=== PATIENT | male | born 1965 | race Caucasian/White ===

== ENCOUNTER 2022-06-17 17:49 | Emergency (ER) | payer SELFPAY ==
--- NOTE | ~2022-06-17 | US_ITS ---
EXAMINATION: US scrotum doppler DATE: 06/17/2022 19:25 INDICATION: testicular pain . TECHNIQUE: Grayscale and Doppler ultrasound images of the testes were obtained. COMPARISON: None. FINDINGS: The right testis measures 5.2 x 2.5 x 2.5 cm. The left testis measures 4.1 x 1.7 x 1.7 cm. No testicular mass. There is normal vascular flow to both testes. The right epididymis is normal with normal vascular flow. The left epididymis is normal with normal vascular flow. Large right hydrocele . No varicoceles. IMPRESSION: No sonographic evidence of testicular torsion. Large right hydrocele. Reviewed, dictated and finalized at location K.
[2022-06-17 18:19] VITALS: BP 202/108; PULSE 81; RESP 18; TEMP 36.6; O2SAT 100
--- NOTE | 2022-06-17 19:39 | ED.GENADULT ---
HPI - General Adult General Chief complaint: Urogenital-Male Stated complaint: testicular pain Time Seen by Provider: 06/17/22 18:58 History of Present Illness HPI narrative: this is a 56-year-old male presenting ED with a chief complaint of testicle pain. Patient said that starting 6 days ago he started to have swelling in the right aspect of his testicle. He thought that it was a hernia. He did not pay much attention to it until today 4:00 p.m. when it started to hurt. He describes as an achy pain that radiates to his stomach, 8 out 10 intensity and comes and goes. Patient notes that he does significant amount of heavy lifting for work. Today 4:00 p.m. he did notice some discoloration of his testicle but that has since resolved. The patient denies nausea, vomiting diarrhea. He has had a bowel movement since this began. He has had no difficulty urinating or getting an erection. Related Data Allergies Allergy/AdvReac Type Severity Reaction Status Date / Time Penicillins Allergy Mild Hives Verified 06/17/22 18:23 MEPERIDINE HCL Allergy Mild Hives Uncoded 06/17/22 18:23 Review of Systems Review of Systems: CONSTITUTIONAL: Denies night sweats. EYES: No eye pain ENT: Denies rhinorrhea CARDIOVASCULAR: Denies palpitations RESPIRATORY: Denies hemoptysis GASTROINTESTINAL: Denies hematemesis GENITOURINARY: Denies hematuria. SKIN: Denies rash MUSCULOSKELETAL: Denies myalgia. NEUROLOGIC: Denies weakness. PSYCHIATRIC: Denies delusions [facility] Surgical History Surgical History (Updated 06/17/22 @ 19:40 by Miguel A Piña MD) Previous back surgery Exam Narrative: APPEARANCE: No apparent distress. Head atraumatic. EYES: PERRLA/EOMI, NOSE: Normal no drainage NECK: Supple, Trachea midline RESPIRATORY: CTAB, No increased work of breathing. CARDIOVASCULAR: S1S2 appreciated ABDOMINAL: Soft, nontender, nondistended, Genital exam: patient has swelling of the right testicle with no overlying skin skin discoloration. The scrotum is tight to touch. No tenderness. I am unable to reduce the size of it. MUSCULOSKELETAl: No obvious deformities NEURO: Alert. Moving 4/4 extremities SKIN:: Warm, dry. Normal color PSYCHIATRIC: Normal affect Course Vital Signs Vital signs: Vital Signs Temperature 97.8 F 06/17/22 18:19 Pulse Rate 81 06/17/22 18:19 Respiratory Rate 18 06/17/22 18:19 Blood Pressure 202/108 H 06/17/22 18:19 Pulse Oximetry 100 06/17/22 18:19 Oxygen Delivery Room Air 06/17/22 18:19 Temperature 97.8 F 06/17/22 18:19 Pulse Rate 81 06/17/22 18:19 Respiratory Rate 18 06/17/22 18:19 Blood Pressure 202/108 H 06/17/22 18:19 Pulse Oximetry 100 06/17/22 18:19 Oxygen Delivery Room Air 06/17/22 18:19 Medical Decision Making MDM Narrative Medical decision making narrative: This is a 56-year-old male presenting to ED with swelling of his right testicle. An ultrasound which performed which showed a large hydrocele. Patient was given pain medication and is now resting comfortably. Patient will be discharged to follow-up with urology for further management of his hydrocele. He has been instructed to take Motrin Tylenol for pain control. Differential Diagnosis Differential Diagnosis: Testicular torsion, inguinal hernia, hydrocele, spermatocele Vital Signs Vital Signs: Vital Signs Temperature 97.8 F 06/17/22 18:19 Pulse Rate 81 06/17/22 18:19 Respiratory Rate 18 06/17/22 18:19 Blood Pressure 202/108 H 06/17/22 18:19 Pulse Oximetry 100 06/17/22 18:19 Oxygen Delivery Room Air 06/17/22 18:19 Temperature 97.8 F 06/17/22 18:19 Pulse Rate 81 06/17/22 18:19 Respiratory Rate 18 06/17/22 18:19 Blood Pressure 202/108 H 06/17/22 18:19 Pulse Oximetry 100 06/17/22 18:19 Oxygen Delivery Room Air 06/17/22 18:19 Lab Data Result diagrams: 06/17/22 19:51 06/17/22 19:51 Labs: Lab Results 06/17/22 06/17/22
[2022-06-17] MEDS: SODIUM CHLORIDE 0.9% IV 1,000 ML 999 ML IV CONT (19:55)
[2022-06-17] MEDS: KETOROLAC 15 MG/ML VIAL (*BKC) IV PUSH (19:56)
[2022-06-17 19:58] LABS: Basophils Percent Auto 0.3 % (0.2-1.2); Eosinophils Absolute Auto 0.2 K/mm3 (0-0.3); Hematocrit 45.3 % (42.0-52.0); Hemoglobin 15.5 g/dL (14.0-18.0); Immature Granulocyte Absolute 0.02 K/mm3 (0.00-0.031); Immature Granulocyte Percent A 0.3 % (0-0.5); Lymphocytes Absolute Auto 1.91 K/mm3 (0.9-3.2); Lymphocytes Percent Auto 26.1 % (18.3-44.2); Mean Corpuscular HGB Conc 34.2 g/dl (32-36); Mean Corpuscular Hemoglobin 28.5 pg (26-34); Mean Corpuscular Volume 83.4 fl (80-100); Mean Platelet Volume 8.6 fl (7.4-10.4); Monocytes Absolute Auto 0.6 K/mm3 (0.1-0.6); Monocytes Percent Auto 8.5 % (2.6-8.5); Neutrophils Absolute Auto 4.5 K/mm3 (1.3-6.7); Neutrophils Percent Auto 61.8 % (45.5-73.1); Platelet Count Result 313 k/mm3 (150-375); Red Blood Count 5.43 M/mm3 (4.6-6.20); White Blood Count 7.3 K/mm3 (4.5-10.0)
[2022-06-17 20:01] LABS: Appearance Urine Clear (Clear); Bilirubin Urine Negative (Negative); Blood Urine Negative (Negative); Color Urine Yellow (Yellow); Glucose Urine UA Negative (Negative); Ketones Urine Negative (Negative); Leukocyte Esterase Ur Negative LEU/UL (Negative); Nitrate Urine Negative (Negative); Protein Urine Negative (Negative); Urobilinogen Urine 0.2 mg/dL (<2.0); pH Urine 6.5 (5.0-9.0)
[2022-06-17 20:15] LABS: Add Urine Microscopic? NO
[2022-06-17 20:20] LABS: Prothrombin Time 12.4 Seconds (11.1-14.7)
[2022-06-17 20:21] LABS: Partial Thromboplastin Time 25.5 SECONDS (22.3-36.8)
[2022-06-17 20:28] LABS: Anion Gap 9 mmol/L (8-16); Blood Urea Nitrogen 11 mg/dL (9-20); Calcium 8.9 mg/dL (8.4-10.2); Carbon Dioxide 24 mmol/L (22-30); Chloride 105 mmol/L (98-107); Estimated CRCL calculation 68 ml/min; Estimated Glomerular Filt Rate > 60; Glucose 93 mg/dL (65-110); Potassium 3.5 mmol/L (3.4-5.0); Sodium 138 mmol/L (137-145)
== END 2022-06-17 22:40 | disposition home or self-care (01) ==
PROVIDERS: Emergency Medicine; Emergency Provider Emergency Medicine
DX: N50.811 Right testicular pain (principal); N43.3 Hydrocele, unspecified
CPT/HCPCS: 36415; 76870; 80048; 81003; 85025; 85610; 85730; 93976; 96365; 96366; 96375; 99284; J0131; J1885; J7030

== ENCOUNTER 2025-04-11 00:01 | Emergency (ER) | payer MEDICARE, SELFPAY ==
--- NOTE | ~2025-04-11 | CT_ITS ---
Clinical indication:Scrotal swelling COMPARISON:Reference is made to an ultrasound examination of the scrotum dated 06/17/2022 TECHNIQUE: Multiple contiguous axial images of the pelvis were performed following the administration of intravenous contrast. FINDINGS: Large right-sided testicular hydrocele. 5 mm scrotal glenn also noted. Small left-sided testicular hydrocele Within the abdomen: The bladder is distended. The prostate gland is enlarged but contains multiple bulky calcifications. Fecal stasis within the rectum. Posterior fixation within the lower lumbar spine. IMPRESSION: Large right-sided hydrocele, as detailed above. Reviewed, dictated and finalized at location A.
--- OUTSIDE RECORDS SUMMARY | 2025-04-11 00:03 | XMS_ITS | Clinical Summary ---
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 Role Phone Unavailable Primary Care Provider Unavailabl e Social History Tobacco Use Types Packs/Day Years Used Date Smoking Tobacco: Never Assessed Sex and Gender Information Value Date Recorded Sex Assigned at Not on file Legal Sex Male 4:27 PM CDT Gender Identity Not on file Sexual Orientation Not on file Plan of Treatment Health Maintenance Due Date Last Done Comments Colorectal Cancer Screening Colonoscopy (10 Years) 1963 Annual Physical 1966 Hepatitis C 1981 DTaP, Tdap and Td Vaccines ( 1 - Tdap) 1982 Pneumococcal Vaccine: 50+ Ye ars (1 of 1 - PCV) 2013 Zoster Vaccines (1 of 2) 2013 COVID-19 Vaccine ( - 2023-2 5 season) 2024 RSV Immunization or 60+ Years (1 - 1-dose 75+ series) 2038 Meningococcal B Vaccine Aged Out No l onger eligible based on patient's age to complete this topic Meningococcal Vaccine Aged Out No danilo amada eligible based on patient's age to complete this topic RSV Immunizations Under 20 Months Aged Out No longer eligible based on patient's age to complete this topic
--- OUTSIDE RECORDS SUMMARY | 2025-04-11 00:03 | XMS_ITS | Clinical Summary ---
Author Organization [facility] Care Team Providers Care Author Agent Name Role Phone Unavailable Primary Care Provider Unavailabl e Social History Tobacco Use Types Packs/Day Years Used Date Smoking Tobacco: Never Assessed Sex and Gender Information Value Date Recorded Sex Assigned at Not on file Legal Sex Male 7:32 PM CDT Gender Identity Not on file Sexual Orientation Not on file Plan of Treatment Not on file
--- OUTSIDE RECORDS SUMMARY | 2025-04-11 00:04 | XMS_ITS | Data Portability ---
Author Organization [place] [facility], Main Office Address [address] [place] [address] Assessment Encounter Date Assessment Date Assessment LastModified by Organization Details LastModified Time 11/26/2022 11/26/2022 X-ray the elbow he can use ibuprofen Recommend to get back in touch with Psychiatry for his mental illness [facility] for scrotal swelling told him he will probably need to get the scrotal ultrasound report as well Follow-up with me in 1 month [email or web address] Not available 12/02/2022 14:29:32 12/19/2022 12/19/2022 Elbow and should er pain seemed to have resolved. Colonoscopy. Follow-up 4 months. Blood work reviewed. [email or web address] Not available 12/21/2022 21:56:00 06/03/2023 06/03/2023 I will see him i n 3-4 days Benadryl stop antibiotic he has got no cardiopulmonary or intra oral problems Tirso Ravinder syndrome Tirso Ravinder syndrome. If he develops fever chills night sweats or worsening of condition please go to emergency room [email or web address] Not available 06/03/2023 21:44:19 06/07/2023 06/07/2023 Doxycycline for 7 days been for him not to take sulfa based drugs [email or web address] Not available 06/09/2023 11:00:45 Plan of Treatment Reminders Order Date Submit Date Provider Last Modified By Organization Details Last Modified Time Details Appointments None recorded. Lab urinalysis, dipstick 2022 023 [facility], [address], [place], [address], 15:38:19 PSA, total, serum or plasma 2022 023 [facility] (Lab), [address] [place], [address], 3 17:58:26 lipid panel, serum 2022 023 [facility] (Lab), [address] [place], [address], 3 17:32:15 CMP, serum or plasma 2022 023 [facility] (Lab), [address] [place], [address], 3 17:32:21 CBC w/ auto diff [address] (Lab), [address] [place], [address], 15:59:08 Referral urologist referral - Please call pt to schedule appt. Thank you 2022 023 shira Salas MD, [address] [facility], [facility] [address], [place], [address], 3 10:23:38 Procedures colonoscopy screening (PROC) 2022 023 shira Merlos MD, [address] [facility], [address], [place], [address], 3 10:29:35 Surgeries None recorded. Imaging XR, elbow 2022 023 [facility] ([facility]), [address] [place], [address], 3 16:55:22 Medication Orders doxycycline hyclate 100 mg capsule 2022 023 [place] [address] [employer] [facility] [id number], [address] [place], [place], [id number], 16:42:54 Patient TargetsNo targets recorded. Patient InstructionsNo instructions recorded. Reason for Referral Urologist Referral for Swell ing of scrotum Please call pt to schedule appt. Thank you Referring Physician: Sherrie Kong, Internal Medicine, Encounter Date: 11/26/2022 Results Created Date Observation Date Name Description Value Unit Range Abnormal Flag Note LastModifiedBy Organization Detail LastModifiedTime 11/27/19 23 11/26/2022 CBC/C OMPLE TE BLD COUNT W/DIF F white blood cells 6.1 x10'3 /uL 4.2-10 .8 Not Available [facility] (Lab) [address] [place], [address], 11/26/2022 15:57:51 11/27/19 23 11/26/2022 CBC/C OMPLE TE BLD COUNT W/DIF F red blood cells 3.78 x10'6 /uL 4.10-5 .80 low Not Available [facility] (Lab) [address] [place], [address], 11/26/2022 15:57:51 11/27/19 23 11/26/2022 CBC/C OMPLE TE BLD COUNT W/DIF F hemoglobin 11.8 g/dL 13.2-1 7.0 low Not Available [facility] (Lab) [address] [place], [address], 11/26/2022 15:57:51 11/27/19 23 11/26/2022 CBC/C OMPLE TE BLD COUNT W/DIF F hematocrit 35.4 % 39.3-5 0.0 low Not Available [facility] (Lab) [address] [place], [address], 11/26/2022 15:57:51 11/27/19 23 11/26/2022 CBC/C OMPLE TE BLD COUNT W/DIF F mean red cell volume 93.7 fL 80.0-9 7.0 Not Available [facility] (Lab) [address] [place], [address], 11/26/2022 15:57:51 11/27/19 23 11/26/2022 CBC/C OMPLE TE BLD COUNT W/DIF F mean red cell hemoglobin 31.2 pg 27.0-3 3.0 Not Available [facility] (Lab) [address] [facility], [address], 11/26/2022 15:57:51 11/27/19 23 11/26/2022 CBC/C OMPLE TE BLD COUNT W/DIF F mean RBC HGB concentratio n 33.3 g/dL 31.0-3 6.0 Not Available [facility] (Lab) [address] [place], [address], 11/26/2022 15:57:51 11/27/19 23 11/26/2022 CBC/C OMPLE TE BLD COUNT W/DIF F red cell distribution width 12.2 % 11.8-1 5.5 Not Available [facility] (Lab) [address] [place], [address], 11/26/2022 15:57:51 11/27/19 23 11/26/2022 CBC/C OMPLE TE BLD COUNT W/DIF F platelets 344 x10'3 /uL 150-40 0 Not Available [facility] (Lab) [address] [place], [address], 11/26/2022 15:57:51 11/27/19 23 11/26/2022 CBC/C OMPLE TE BLD COUNT W/DIF F mean platelet volume 10.2 fL 9.0-12 .4 Not Available [facility] (Lab) [address] [place], [address], 11/26/2022 15:57:51 11/27/19 23 11/26/2022 CBC/C OMPLE TE BLD COUNT W/DIF F neutrophils 50.3 % 39.0-7 2.0 Not Available [facility] (Lab) [address] [place], [address], 11/26/2022 15:57:51 11/27/19 23 11/26/2022 CBC/C OMPLE TE BLD COUNT W/DIF F lymphocytes 38.7 % 16.0-4 7.0 Not Available [facility] (Lab) [address] [place], [address], 11/26/2022 15:57:51 11/27/19 23 11/26/2022 CBC/C OMPLE TE BLD COUNT W/DIF F monocytes 7.5 % 5.0-12 .0 Not Available [facility] (Lab) [address] [place], [address], 11/26/2022 15:57:51 11/27/19 23 11/26/2022 CBC/C OMPLE TE BLD COUNT W/DIF F eosinophils 2.3 % 1.0-7. 0 Not Available [facility] (Lab) [address] [place], [address], 11/26/2022 15:57:51 11/27/19 23 11/26/2022 CBC/C OMPLE TE BLD COUNT W/DIF F basophils 1.0 % 0.0-2. 0 Not Available [facility] (Lab) [address] [place], [address], 11/26/2022 15:57:51 11/27/19 23 11/26/2022 CBC/C OMPLE TE BLD COUNT W/DIF F immature granulocytes 0.2 % 0.00-0 .50 Not Available [facility] (Lab) [address] [place], [address], 11/26/2022 15:57:51 11/27/19 23 11/26/2022 CBC/C OMPLE TE BLD COUNT W/DIF F neutrophils, absolute count 3.07 x10'3 /uL 1.5-8. 0 Not Available [facility] (Lab) [address] [place], [address], 11/26/2022 15:57:51 11/27/19 23 11/26/2022 CBC/C OMPLE TE BLD COUNT W/DIF F lymphocytes, absolute count 2.36 x10'3 /uL 1.07-3 .43 Not Available [facility] (Lab) [address] [place], [address], 11/26/2022 15:57:51 11/27/19 23 11/26/2022 CBC/C OMPLE TE BLD COUNT W/DIF F monocytes, absolute count 0.46 x10'3 /uL 0.29-0 .99 Not Available [facility] (Lab) [address] [place], [address], 11/26/2022 15:57:51 11/27/19 23 11/26/2022 CBC/C OMPLE TE BLD COUNT W/DIF F eosinophils, absolute count 0.14 x10'3 /uL 0.02-0 .53 Not Available [facility] (Lab) [address] [place], [address], 11/26/2022 15:57:51 11/27/19 23 11/26/2022 CBC/C OMPLE TE BLD COUNT W/DIF F basophils, absolute count 0.06 x10'3 /uL 0.01-0 .08 Not Available [facility] (Lab) [address] [place], [address], 11/26/2022 15:57:51 11/27/19 23 11/26/2022 CBC/C OMPLE TE BLD COUNT W/DIF F immature granulocytes ,absolute 0.01 x10'3 /uL 0.00-0 .05 Not Available [facility] (Lab) [address] [place], [address], 11/26/2022 15:57:51 11/27/19 23 11/26/2022 CBC/C OMPLE TE BLD COUNT W/DIF F nucleated red blood cells 0.0 % -0 Not Available [facility] (Lab) [address] [place], [address], 11/26/2022 15:57:51 11/27/19 23 11/26/2022 CBC/C OMPLE TE BLD COUNT W/DIF F NRBC# 0.00 x10'3 /uL Not Available [facility] (Lab) [address] [place], [address], 11/26/2022 15:57:51 11/27/19 23 11/26/2022 LIPID PANEL cholesterol 179 mg/dL 140-19 9 NIH AURY NSUS RECOM MENDA TION FOR JESUS STERO L: ADULT CHILD LOW RISK: <200 <170 BORDE RLINE : <200- 239 ----- HIGH RISK: >240 >200 Not Available [facility] (Lab) [address] [place], [address], 11/26/2022 17:32:15 11/27/19 23 11/26/2022 LIPID PANEL triglyceride s 215 mg/dL 0-150 high NIH AURY NSUS REPOR T RECOM MENDA TION FOR TRIGL YCERI SAMARA: ADULT CHILD LOW RISK: <150 ----- BODER LINE: 150-1 99 ----- HIGH RISK: >200 ----- Not Available [facility] (Lab) [address] [place], [address], 11/26/2022 17:32:15 11/27/1911/26/2022 LIPID PANEL HDL cholesterol 58 mg/dL 40- Not Available [facility] (Lab) [address] [place], [address], 11/26/2022 17:32:15 03/13/11/26/2022 LIPID PANEL LDL cholesterol, calculated 78 mg/dL 0-130 NIH AURY NSUS REPOR T RECOM MENDA TIONS FOR LDL: ADULT CHILD LOW RISK <130 <110 (OPTI MAL LDL) <100 ----- SOCRATESDE RLINE : 130-1 59 ----- HIGH RISK: >160 >130 A TRIGL YCERI DE RESUL T >400 INVAL IDATE S THE CALCU LATIO N FOR LDL FRACT IONAT ION - THE LDL RESUL T WILL NOT BE REPOR LILLIAN. Not Available [facility] (Lab) [address] [place], [address], 11/26/2022 17:32:15 11/27/19 23 11/26/2022 COMPR EHENS HERI METAB OLIC PANEL sodium 138 mmol/ L 137-14 5 Not Available [facility] (Lab) [address] [place], [address], 11/26/2022 17:32:21 11/27/19 23 11/26/2022 COMPR EHENS HERI METAB OLIC PANEL potassium 3.6 mmol/ L 3.5-5. 1 Not Available [facility] (Lab) [address] [place], [address], 11/26/2022 17:32:21 11/27/19 23 11/26/2022 COMPR EHENS HERI METAB OLIC PANEL chloride 105 mmol/ L 98-107 Not Available [facility] (Lab) [address] [place], [address], 11/26/2022 17:32:21 11/27/19 23 11/26/2022 COMPR EHENS HERI METAB OLIC PANEL carbon dioxide 24 mmol/ L 22-30 Not Available [facility] (Lab) [address] [place], [address], 11/26/2022 17:32:21 11/27/19 23 11/26/2022 COMPR EHENS HERI METAB OLIC PANEL anion gap 12.6 mmol/ L 14-22 low Not Available [facility] (Lab) [address] [place], [address], 11/26/2022 17:32:21 11/27/19 23 11/26/2022 COMPR EHENS HERI METAB OLIC PANEL glucose 113 mg/dL 70-99 high Not Available [facility] (Lab) [address] [place], [address], 11/26/2022 17:32:21 11/27/19 23 11/26/2022 COMPR EHENS HERI METAB OLIC PANEL BUN 12 mg/dL 8-19 Not Available [facility] (Lab) [address] [place], [address], 11/26/2022 17:32:21 11/27/19 23 11/26/2022 COMPR EHENS HERI METAB OLIC PANEL creatinine 1.00 mg/dL 0.66-1 .25 Not Available [facility] (Lab) [address] [place], [address], 11/26/2022 17:32:21 11/27/19 23 11/26/2022 COMPR EHENS HERI METAB OLIC PANEL GFR >60 Refer ence Range : [place] ge GFR Healt hy Adult : >60 mL/mi n/1.7 3 m2 Chron ic Kidne y Disea se: 15-60 mL/mi n/1.7 3 m2 Kidne y Failu re: <15/m L/min /1.73 m2 www.n iddk. nih.g ov The MDRD study equat ion has not been valid ated in child catrina <18 years of age; pregn ant women ; the elder ly >85 years of age; or in some racia l or ethni c subgr oups, such as Hispa nics. Outsi de the valid ated terrance eters , estim ated GFR is less accur ate, requi ring clini lambert judgm ent on a case- by-ca se basis . Clini lmabert inter preta tion for other races and ages must be made by the clini kamala. The MDRD study equat ion has not been valid ated for the evalu ation of serum creat inine relat ed to nutri ramsey l statu s or medic ation usage . For perso ns <18 years of age, a pedia tric GFR pauletteu jess is avail able on the [facility] websi te: https ://jairo w.lata arreguiny.o liz/pr ofess ional s/kdo qi/gf r_cal culat or Not Available [facility] (Lab) [address] [place], [address], 11/26/2022 17:32:21 11/27/19 23 11/26/2022 COMPR EHENS HERI METAB OLIC PANEL alkaline phosphatase 73 U/L 38-126 Not Available [facility] (Lab) [address] [place], [address], 11/26/2022 17:32:21 11/27/19 23 11/26/2022 COMPR EHENS HERI METAB OLIC PANEL alanine aminotransfe rase 25 U/L 0-50 Not Available [facility] (Lab) [address] [place], [address], 11/26/2022 17:32:21 11/27/19 23 11/26/2022 COMPR EHENS HERI METAB OLIC PANEL aspartate aminotransfe rase 27 U/L 15-46 Not Available [facility] (Lab) [address] [place], [address], 11/26/2022 17:32:21 11/27/19 23 11/26/2022 COMPR EHENS HERI METAB OLIC PANEL bilirubin, total 0.80 mg/dL 0.20-1 .30 Not Available [facility] (Lab) [address] [place], [address], 11/26/2022 17:32:21 11/27/19 23 11/26/2022 COMPR EHENS HERI METAB OLIC PANEL calcium 9.5 mg/dL 8.4-10 .2 Not Available [facility] (Lab) [address] [facility] [place], [address], 11/26/2022 17:32:21 11/27/19 23 11/26/2022 COMPR EHENS HERI METAB OLIC PANEL total protein 7.5 g/dL 6.3-8. 2 Not Available [facility] (Lab) [address] [place], [address], 11/26/2022 17:32:21 11/27/19 23 11/26/2022 COMPR EHENS HERI METAB OLIC PANEL albumin 4.4 g/dL 3.4-5. 0 Not Available [facility] (Lab) [address] [place], [address], 11/26/2022 17:32:21 11/27/19 23 11/26/2022 COMPR EHENS HERI METAB OLIC PANEL globulin 3.1 g/dL 2.6-4. 2 Not Available [facility] (Lab) [address] [place], [address], 11/26/2022 17:32:21 11/27/19 23 11/26/2022 COMPR EHENS HERI METAB OLIC PANEL A/G ratio 1.4 ratio 1.0-2. 0 Not Available [facility] (Lab) [address] [place], [address], 11/26/2022 17:32:21 11/27/19 23 11/26/2022 PSA SCREE N PSA medicare screen 1.51 NG/mL 0.00-4 .00 Not Available [facility] (Lab) [address] [place], [address], 11/26/2022 17:58:26 12/15/19 23 12/14/2022 urina lysis , dipst ick Leukocytes (reference range: negative cynthia/ l) Negati ve Not Available [facility] [address], [place], [address], 12/14/2022 15:14:13 12/15/19 23 12/14/2022 urina lysis , dipst ick Nitrite (reference rage: negative mg/dl) negati ve Not Available [facility] [address] [facility] [address], [place], [address], 12/14/2022 15:14:13 12/15/19 23 12/14/2022 urina lysis , dipst ick Urobilinogen (reference range: 0.2-1 mg/dl) 0.2 Not Available [facility] [address] [place], [place] [address], [place], [address], 12/14/2022 15:14:13 12/15/19 23 12/14/2022 urina lysis , dipst ick Protein (reference range: negative mg/dl) Negati ve Not Available [facility] [address] [place], [place] [address] [facility] [address], [place], [address], 12/14/2022 15:14:13 12/15/19 23 12/14/2022 urina lysis , dipst ick pH (reference range: 5-7) 6.0 Not Available [facility] [address] [place], [place] [address], [place], [address], 12/14/2022 15:14:13 12/15/19 23 12/14/2022 urina lysis , dipst ick Blood (reference range: negative Merlin/ l) Negati ve Not Available [facility] [address] [place] [address] [address], [place], [address], 12/14/2022 15:14:13 12/15/19 23 12/14/2022 urina lysis , dipst ick Specific [place] (reference range: 1.005-1.030) 1.020 Not Available [facility] [address] [place] [address] [address], [place], [address], 12/14/2022 15:14:13 12/15/19 23 12/14/2022 urina lysis , dipst ick Ketone (reference range: negative mg/dl) Negati ve Not Available [facility] [address], [place], [address], 12/14/2022 15:14:13 12/15/19 23 12/14/2022 urina lysis , dipst ick Bilirubin (reference range: negative mg/dl) Negati ve Not Available [facility] [address] [facility] [address], [place], [address], 12/14/2022 15:14:13 12/15/19 23 12/14/2022 urina lysis , dipst ick Glucose (reference range: negative mg/dl) Negati ve Not Available [facility] [address] [facility] [address], [place], [address], 12/14/2022 15:14:13 12/15/19 23 12/14/2022 urina lysis , dipst ick Appearance Clear Not Available [facility] [address] [place], [place] [address] [facility] [address], [place], [address], 12/14/2022 15:14:13 12/15/19 23 12/14/2022 urina lysis , dipst ick Color Yellow Not Available [facility] [address] [facility] [address], [place], [address], 12/14/2022 15:14:13 11/27/19 23 11/26/2022 XR, elbow [facility] [address], [place] [address] [phone] Patien t Name: ENOC MAYNARD Access ion #: [id number] Sex: M : 1964 0 Locati on: [facility] Attend ing Physic yamini: GUSTAVO KONG Orderi ng Physic yamini: GUSTAVO KONG Exam Date: 11:59 AM Exam Name: XR ELBOW RT 3V Admitt ing Diagno sis(es ): RADIOL OGY REPORT - FINAL EXAM: XR ELBOW RT 3V HISTOR Y: PAIN RT ELBOW 57-yea r-old male with right elbow pain after blunt injury . COMPAR CHUCKY: Radiog raphs dated 2016. TECHNI QUE: Three views of the right elbow were perfor med. FINDIN GS: No acute fractu re or effusi on are identi fied about the right elbow. There are small radioc apitel lar and ulnotr ochlea r margin al osteop hytes, withou t signif icant joint space narrow ing. IMPRES TRACI: Mild degene rative change s of the right elbow withou t eviden ce of fractu re. Page 1 of 2 [facility] Patien t Name: ENOC MAYNARD Access ion #: [id number] Sex: M : 1964 0 Exam Date: 023 11:59 AM Exam Name: XR ELBOW RT 3V Admitt ing Diagno sis(es ): Create d and electr onical ly signed by: Chuck north MD Signed Date: 12:18 PM (CT) Dictat ed by: Chuck north MD DD: 12:18 PM (CT) DT: 12:18 PM (CT) Page 2 of 2 [facility] (Imaging) [address] [place], [address], 12/21/2022 10:07:05 Result Notes Documentation Provider Name and Address Organization Details Recorded Time Xr, Elbow : [facility] [address] [place] [address] Patient Name: KASEY MAYNARD Sex: M : 1965 Location: [facility] Attending Physician: SHERRIE KONG Ordering Physician: SHERRIE KONG Exam Date: 11/26/2022 11:59 AM Exam Name: XR ELBOW RT 3V Admitting Diagnosis(es): RADIOLOGY REPORT - FINAL EXAM: XR ELBOW RT 3V HISTORY: PAIN RT ELBOW 57-year-old male with right elbow pain after blunt injury. COMPARISON: Radiographs dated 11/04/2016. TECHNIQUE: Three views of the right elbow were performed. FINDINGS: No acute fracture or effusion are identified about the right elbow. There are small radiocapitellar and ulnotrochlear marginal osteophytes, without significant joint space narrowing. IMPRESSION: Mild degenerative changes of the right elbow without evidence of fracture. Page 1 of 2 [facility] Patient Name: KASEY MAYNARD Sex: M : 1965 Exam Date: 11/26/2022 11:59 AM Exam Name: XR ELBOW RT 3V Admitting Diagnosis(es): Created and electronically signed by: Chuck Vidal MD Signed Date: 11/26/2022 12:18 PM (CT) Dictated by: Chuck Vidal MD (CT) (CT) Page 2 of 2 LOBITO Rey [place] - [employer] [facility] 12/21/2022 10:07:05 Problems Name Problem SNOMED Code Status Onset Date Resolution Date Notes Provider Name and Address Organization Details Recorded Time Pain of shoulder region 72399877 Active Not Available [facility] 3 14:47:57 Skin lesion 82476866 Active Not Available [employer] 3 14:47:57 Pain of right elbow joint 7237689655747 9109 Active 2022 LOBITO Navarro [place] - [employer] [facility] 12:30:33 Swelling of scrotum 663322836 Active 2022 LOBITO Navarro [facility] 3 12:31:12 Abscess of skin and/or subcutaneo tissue 89319005 Active 2022 [facility]ond[facility] Payne [facility] 3 09:29:16 Cellulitis of finger of right hand 9686484276109 9109 Active 2022 Sherrie Kong MD [address] [facility], [address] [address], [place], [address] , [facility] 3 21:41:12 Eruption caused by drug 05580787 Active 2022 Sherrie Kong MD [address] [facility], [address] [place] [address], [place], [address] , [facility] 3 21:41:28 Problem Notes None recorded. Procedures Surgical History Date Name Laterality Status Provider Name and Address Organization Details Recorded Time Back Surgery completed LOBITO Rey [facility] 11/26/2022 11:44:33 Imaging Results None recorded. Procedure Notes None recorded. Medical Equipment None Reported. Allergies Allergen ID Allergen Name Allergen Category Reaction Reaction Severity Criticality Documentation Date Start Date Code Code System Note Provider Name and Address Organization Details Recorded Time 77810 Product containin g penicilli n (product) medicatio n hives Not available Not available 11/14/2022 50209 8001 SNOMED Not Available [facility] 3 14:52:56 82492 Demerol medicatio n hives Not available Not available 11/14/2022 16853 1 RxNorm Not Available [facility] 3 14:52:56 97324 sulfameth oxazole medicatio n hives Not available Not available 06/07/2023 34834 RxNorm LOBITO Rey, [facility] 3 10:30:26 Medications Name Sig Start Date Stop Date Status Note LastModified by Organization Details LastModified Time ziprasidone 80 mg capsule 11/26 completed Not Available Not Available Not Available doxycycline hyclate 100 mg capsule Take 1 capsule twice a day by oral route for 7 days. 09/22/ 2023 active Not Available Not Available Not Avai lable clindamycin HCl 300 mg capsule TAKE ONE CAPSULE BY MOUTH THREE TIMES DAILY FOR 7 DAYS active Not Available Not Available No t Available divalproex 500 mg tablet,delay ed release 11/26 completed Not Available Not Available Not Available sulfamethoxa zole 800 mg-trimethop rim 160 mg tablet TAKE 1 TABLET BY MOUTH EVERY 12 HOURS FOR 7 DAYS 06/03 completed Not Available Not Available Not Available ziprasidone 20 mg capsule 11/26 completed Not Available Not Available Not Available temazepam 30 mg capsule 11/26 completed Not Available Not Available Not Available ziprasidone 40 mg capsule 07/06 completed Not Available Not Available Not Available ibuprofen 600 mg tablet TAKE 1 TABLET BY MOUTH EVERY 6 HOURS WITH FOOD NEEDED 06/03 completed Not Available Not Available Not Available Aleve active Not Available Not Availa ble Not Available Vitals Date Recorded Body weight Body mass index (BMI) Body height Body temperature Heart rate Systolic And Diastolic Provider Name and Address Organization Details Last Updated DateTime 3 16950.1 2 g 22.9 kg/m2 167.64 cm 98.5 [degF] 91 /min 148/80 mm[Hg] Gloria Shields [facility] [employer] [facility] 3 11:47:08 Date Recorded Body height Body mass index (BMI) Body weight Body temperature Oxygen saturation Oxygen saturation in Arterial blood by Pulse oximetry Heart rate Systolic And Diastolic Provider Name and Address Organization Details Last Updated DateTime 3 167.64 cm 22.9 kg/m2 97258.1 2 g 98.4 [degF] 97 % 97 % 79 /min 164/98 mm[Hg] Nghia Gonzalez [facility] [employer] [facility] [employer] [facility] 3 15:10:48 Date Recorded Body height Body mass index (BMI) Body weight Body temperature Heart rate Systolic And Diastolic Provider Name and Address Organization Details Last Updated DateTime 3 167.64 cm 24 kg/m2 45463.2 6 g 98.5 [degF] 81 /min 150/86 mm[Hg] Gloria Shields [facility] [employer] [facility] [employer] [facility] 3 11:54:14 Date Recorded Body height Body mass index (BMI) Body weight Body temperature Heart rate Systolic And Diastolic Provider Name and Address Organization Details Last Updated DateTime 3 167.64 cm 23.4 kg/m2 46140.8 9 g 100.9 [degF] 76 /min 164/88 mm[Hg] Alondra campo RN [facility] 3 15:29:52 Date Recorded Body height Body mass index (BMI) Body weight Body temperature Heart rate Systolic And Diastolic Provider Name and Address Organization Details Last Updated DateTime 3 167.64 cm 22.8 kg/m2 79924.5 2 g 98.1 [degF] 87 /min 148/80 mm[Hg] LOBITO Rey [facility] 3 10:29:46 Social History Question Answer Notes LastModified by Organizat ion Details LastModified Time Tobacco Smoking Status Never Smoker LOBITO Rey [facility] 11/26/2022 11:40:39 Do You Have An Advance Directive? No [email or web address] Information not available 11/26/2022 Is Blood Transfusion Acceptable In An Emergency? Yes [email or web address] Information not available 11/26/2022 What Is Your Level Of Caffeine Consumption? Heavy [email or web address] Information not available 11/26/2022 In The 14 Days Before Symptom Onset, Have You Had Close Contact With A Laboratory-confir med COVID-19 While That Case Was Ill? No [email or web address] Information not available 11/26/2022 In The 14 Days Before Symptom Onset, Have You Had Close Contact With A Person Who Is Under Investigation For COVID-19 While That Person Was Ill? No [email or web address] Information not available 11/26/2022 What Type Of Diet Are You Following? REGULAR [email or web address] Information not available 11/26/2022 What Is The Highest Grade Or Level Of School You Have Completed Or The Highest Degree You Have Received? [id number] [email or web address] Information not available 11/26/2022 Have There Been Any Changes To Your Family Or Social Situation? No [email or web address] Information no t available 11/26/2022 What Is The Fluoride Status Of Your Home? Unknown Information not available 11/26/2022 Do You Use Insect Repellent Routinely? No Information not available 11/26/2022 Where Do You Live? Apartment [email or web address] Information not available 11/26/2022 Do You Have A Medical Power Of Meeting Specialist? No [email or web address] Information not available 11/26/2022 What Was The Date Of Your Most Recent Tobacco Screening? 06/07/2023 [email or web address] Information not available 06/07/2023 How Many Children Do You Have? 2 Information not available 11/26/2022 Do You Have Any Pets? Yes [email or web address] Information not available 11/26/2022 What Is Your Relationship Status? [email or web address] Information not available 11/26/2022 Do You Use Your Seat Belt Or Car Seat Routinely? Yes [email or web address] Information not available 11/26/2022 Do You Have Smoke And Carbon Monoxide Detectors In Your Home? Yes [email or web address] Information not available 11/26/2022 Are You Passively Exposed To Smoke? No [email or web address] Information no t available 11/26/2022 Are There Any Smokers In Your House? No [email or web address] Information not available 11/26/2022 Do You Use Sunscreen Routinely? Yes Summer Time [email or web address] Information not available 11/26/2022 Have You Recently Traveled Abroad? No [email or web address] Information not available 11/26/2022 Do You Have Any Dietary Restrictions? No [email or web address] Information not available 11/26/2022 Sex: Unknown Functional Status Question Answer Note LastModified by Organizat ion Details LastModified Time Do you use any illicit or recreational drugs? No [email or web address] Information not available 11/26/2022 Do you or have you ever used any other forms of tobacco or nicotine? No [email or web address] Information not available 11/26/2022 What is your level of alcohol consumption? None [email or web address] Information not available 11/26/2022 Are you currently employed? No Information not available 11/26/2022 What is your occupation? disabled [id number] Information not available 11/14/2022 What is your exercise level? Occasional [email or web address] Information not available 11/26/2022 Mental Status Question Answer Note LastModified by Organization D etails LastModified Time Do you feel stressed (tense, restless, nervous, or anxious, or unable to sleep at night)? [id number] [email or web address] Information not available 11/26/2022 Family History Relationship Description Onset Age of this Age Resolved Age Notes LastModified by Organization Details LastModified Time Paternal Uncle Heart disease [email or web address] Not available 11/14 11:36:27 Paternal Uncle History of hypertension [email or web address] Not available 0 11/26/2022 11:36:41 Father Gout [email or web address] Not availabl e 11/26/2022 11:37:16 Father Heart disease [email or web address] Not available 11/14 11:37:28 Father History of hypertension [email or web address] Not available 0 11/26/2022 11:37:33 Mother Mental disorder Not available 11/14 11:38:12 Medical History Condition Response HAVE YOU BEEN HOSPITALIZED OR SEEN IN [facility] IN THE PAST YEAR ? Y Immunizations Vaccine Type Date Status Note Provider Nam e and Address Organization Details Recorded Time Influenza, split virus, trivalent, preservative 4 completed Not Available [facility] 11/14/2022 14:52:49 Past Encounters Encounter ID Performer Location Encounter Start Date Encounter Closed Date Diagnosis/Indication Diagnosis SNOMED-CT Code Diagnosis ICD10 Code Diagnosis Note [id number] Sherrie Kong MD [facility] Internal Med [facility] [address] [facility], [facility] [address] [place] [address] 11/26/2022 11:11:03 11/26/2022 12:30:13 Pain of right elbow joint 3740079221 1569600 M25.521 Swelling of scrotum 2716 28883 N50.89 Screening for cardiovascular system disease 791756359 Z13.6 Screening for malignant neoplasm of prostate 596091863 Z12.5 [id number] Haylie Michel MD [facility] [address] [facility] [address] [place] [address] 12/14/2022 14:44:54 12/14/2022 15:32:42 Swelling of scrotum 020679438 N50.89 - Patient with large right hydrocele on US at [place] and on exam today.- Will have patient follow up with Dr. Salas at next available per patient request to discuss right hydrocelec marshall [id number] Sherrie Kong MD [facility] Internal Med [facility] [address] [place] [address] 12/19/2022 11:29:53 12/19/2022 12:38:42 Screening for malignant neoplasm of colon 236717921 Z12.11 Pain of ri ght elbow joint 7040964317 0678629 M25.521 Pain of sh oulder region 81472224 M25.007 [id number] Sherrie Kong MD [facility] Internal Med [facility] [address] [place] [address] 06/03/2023 15:04:18 06/03/2023 16:04:25 Cellulitis of finger of right hand 6390391054 5197980 L03.011 Eruption c aused by drug 43682310 L27.0 [id number] Sherrie Kong MD [facility] Internal Med [facility] [address] [place] [address] 1 06/07/2023 10:23:45 06/07/2023 12:08:55 Cellulitis of finger of right hand 2933342575 7470961 L03.011 Eruption c aused by drug 01074640 L27.0 Health Concerns Section Related Observation LastModified by Organization Detai ls LastModified Time None Recorded Concern Status LastModified by Organization Details LastModified Time None Recorded Advance Directives Directive N: Payers Insurance Date Sequence Insurance Name Policy Number Policy Rivera Covered Member ID Rivera Member ID Guarantor Name 01/18/2025 1 [place] Kasey Maynadr [id number] Kasey Maynard Notes Date Note Type Note Provider Name and Address Organization Details Recorded Time 11/26/2022 text/html 57-year-old ER follow-up he fell at home few days back went to the emergency room where he says x-rays were negative continues to have pain in his elbow has a history of bipolar disorders been off medications. Also having some scrotal swelling for unspecified amount of time but states that he went to [facility] had an ultrasound a couple of months ago but does not sound like he ever saw a urologistMeds ibuprofen p.r.n.Allergies noneSurgeries he has had back surgeryFamily history of stroke in dementiaLives alone. Works apart real. Flu shot up-to-date COVID not [id number] he had a colonoscopy about 3 years ago Sherrie Kong MD [address], [place], [address], [employer] 12/02/2022 14:29:53 12/14/2022 text/html ROS as noted in the HPI Patient with history of question of TBI and psych history who presents with scrotal swelling and a hydrocele. He had a scrotal US done at [place] which noted a large right hydrocele, with no other abnormalities. Patient is interested in a hydrocelectomy. Denies hematuria/dysuria. On no medication. Was told he should see Dr. Salas, as he is 'the best of the best'. Haylie Michel MD [address], [place], [address], [employer] 12/14/2022 15:29:35 12/19/2022 text/html following up with Urology on the hydroceleneeds a colonoscopy Sherrie Kong MD [address], [place], [address], [employer] 12/21/2022 21:56:16 06/03/2023 text/html Abscess middle finger right hand Septra diffuse rash no problems with lesions in mouth no problems breathing rash itches Sherrie Kong MD [address], [place], [address], [employer] 06/03/2023 21:44:37 06/07/2023 text/html rash gonefinger a little better Sherrie Kong MD [address], [place], [address], [employer] 06/09/2023 11:01:03
[2025-04-11 00:05] VITALS: BP 187/104; PULSE 84; RESP 18; TEMP 36.9; O2SAT 99
--- OUTSIDE RECORDS SUMMARY | 2025-04-11 01:00 | XMS_ITS | Clinical Summary ---
Author Organization [facility] Address [address] [place] [id number] Care Team Providers Care Contracts Specialist Name Role Phone Unavailable Primary Care Provider [...]
[2025-04-11 01:13] LABS: Hematocrit 40.6 % (42.0-52.0); Hemoglobin 13.5 g/dL (14.0-18.0); Immature Granulocyte Percent A 0.2 % (0-0.5); Lymphocytes Absolute Auto 1.70 K/mm3 (0.9-3.2); Mean Corpuscular HGB Conc 33.3 g/dl (32-36); Mean Corpuscular Hemoglobin 27.7 pg (26-34); Mean Corpuscular Volume 83.2 fl (80-100); Nucleated Red Blood Cells Absolute Auto 0.000 K/mm3 (0.0-0.012); Nucleated Red Blood Cells Perc 0.0 % (0.0-0.2); Platelet Count Result 290 k/mm3 (150-375); Red Blood Count 4.88 M/mm3 (4.6-6.20); White Blood Count 6.7 K/mm3 (4.5-10.0)
[2025-04-11 01:33] LABS: Alanine Aminotransferase 23 U/L (6-50); Albumin Level 4.1 g/dL (3.5-5.1); Alkaline Phosphatase 65 U/L (38-126); Anion Gap 10 mmol/L (4-12); Aspartate Amino Transferase 30 U/L (17-59); Bilirubin,Total 0.5 mg/dL (0.2-1.3); Blood Urea Nitrogen 23 mg/dL (9-20); Calcium 9.4 mg/dL (8.4-10.2); Carbon Dioxide 20 mmol/L (22-30); Chloride 109 mmol/L (98-107); Estimated CRCL calculation 64 ml/min; Estimated Glomerular Filt Rate > 60; Glucose 125 mg/dL (65-110); Potassium 3.6 mmol/L (3.4-5.0); Sodium 139 mmol/L (137-145); Total Protein 7.1 g/dL (6.3-8.2)
[2025-04-11] MEDS: MORPHINE SULFATE (*CRX) 4 MG/ML INJ IV PUSH (01:33)
[2025-04-11 01:59] LABS: Add Urine Microscopic? NO; Appearance Urine Clear (Clear); Glucose Urine UA Negative (Negative); Leukocyte Esterase Ur Negative LEU/UL (Negative); Nitrate Urine Negative (Negative); Specific Grav Ur 1.019 (1.001-1.035)
--- NOTE | 2025-04-11 05:53 | ED_ITS ---
HPI - Male Genitourinary General Chief complaint: Urogenital-Male Stated complaint: testicular pain Time Seen by Provider: 04/11/25 00:40 History of Present Illness HPI Narrative: Patient presents here with right scrotal pain, he had been diagnosed with a testicular hernia almost 2 years ago here, had subsequently gone to several other emergency rooms and had asked his primary care doctor to given follow-up to a urologist which has still not happened yet. Over the last few days he has had more pain and he would like to have pain medication so that he can go home and follow-up with urology. Related Data Allergies Allergy/AdvReac Type Severity Reaction Status Date / Time Penicillins Allergy Mild Hives Verified 04/11/25 00:08 MEPERIDINE HCL Allergy Mild Hives Uncoded 04/11/25 00:08 Review of Systems 2 Review of Systems: All systems reviewed & are unremarkable except as noted in HPI and [facility] Surgical History (Updated 06/17/22 @ 19:40 by Miguel A Piña MD) Previous back surgery Exam 2 Narrative: EXAMINATION OF ORGAN SYSTEMS/BODY AREAS: Constitutional: Vital signs per nursing GENERAL:[No acute distress, non-toxic appearing.] HEAD: Normal with no signs of head trauma. EYES: EOMI, conjunctiva normal ENT: Hearing grossly intact LUNGS: Nonlabored breathing. HEART: [Regular rate and rhythm] ABD: [Soft], [nontender to palpation] : Impressively swollen scrotum, R>L, no significant tenderness; normal cremasteric reflex EXT: Normal range of motion SKIN: [No rashes or lesions.] NEURO: [Alert and oriented x 3. No gross focal sensory or strength deficits.] PSYCH: Normal affect Course Vital Signs Vital signs: Vital Signs Temperature 98.4 F 04/11/25 00:05 Pulse Rate 84 04/11/25 00:05 Respiratory Rate 18 04/11/25 00:05 Blood Pressure 187/104 H 04/11/25 00:05 Pulse Oximetry 99 04/11/25 00:05 Oxygen Delivery Room Air 04/11/25 00:05 Temperature 98.4 F 04/11/25 00:05 Pulse Rate 84 04/11/25 00:05 Respiratory Rate 18 04/11/25 00:05 Blood Pressure 187/104 H 04/11/25 00:05 Pulse Oximetry 99 04/11/25 00:05 Oxygen Delivery Room Air 04/11/25 00:05 MDM - Male Genitourinary MDM Narrative Medical decision making narrative: Patient presents here with increased swollen and tender right scrotum, he states that he thinks it is from his testicular hernia. Overall he appears pretty comfortable, in no distress, no nausea, normal cremasteric reflex, so overall I have very low concern for this being testicular torsion especially since he states that the symptoms have been ongoing for 2 years, they are just worse over last few days he does want pain medicine before he can see the urologist I did obtain CT as patient reports this is hernia, this does show a large hydrocele on the right, and 1 on the left that is smaller, I did review prior records and noted that he had an ultrasound done here 2 years ago, the hydrocele today does appear quite a bit larger than from 2 years ago. After dose of IV morphine here, he feels fine, pain resolved, he would like to go home. I again have very low concern for this being torsion given his benign exam. Discussed with urologist who recommends close follow-up. Patient agreeable to this plan and will call the office on Saturday. Lab Data 04/11/25 01:03 04/11/25 01:03 Labs: Lab Results 04/11/25 04/11/25 Range/Units 01:03 01:48 WBC 6.7 (4.5-10.0) K/mm3 RBC 4.88 (4.6-6.20) M/mm3 Hgb 13.5 L (14.0-18.0) g/dL Hct 40.6 L (42.0-52.0) % MCV 83.2 (80-100) fl MCH 27.7 (26-34) pg MCHC 33.3 (32-36) g/dl RDW 13.4 (11.5-14.5) % Plt Count 290 (150-375) k/mm3 MPV 8.5 (7.4-10.4) fl Immature Gran % (Auto) 0.2 (0-0.5) % Neut % (Auto) 61.7 (45.5-73.1) % Lymph % (Auto) 25.6 (18.3-44.2) % Glenn % (Auto) 10.2 H (2.6-8.5) % Eos % (Auto) 2.0 (0-4.4) % Baso % (Auto) 0.3 (0.2-1.2) % Lymph # (Auto) 1.70 (0.9-3.2) K/mm3 Glenn # (Auto) 0.7 H (0.1-0.6) K/mm3 Eos # (Auto) 0.1 (0-0.3) K/mm3 Baso # (Auto) 0.0 (0.0-0.1) K/mm3 Abs Immat Gran (auto) 0.01 (0.00-0.031) K/mm3 Absolute Neuts (auto) 4.1 (1.3-6.7) K/mm3 Absolute Nucleated RBC 0.000 (0.0-0.012) K/mm3 Nucleated RBC % 0.0 (0.0-0.2) % Sodium 139 (137-145) mmol/L Potassium 3.6 (3.4-5.0) mmol/L Chloride 109 H (98-107) mmol/L Carbon Dioxide 20 L (22-30) mmol/L Anion Gap 10 (4-12) mmol/L BUN 23 H D (9-20) mg/dL Creatinine 1.00 (0.7-1.3) mg/dL Estim Creat Clear Calc 64 ml/min Estimated GFR > 60 (59 - ) Glucose 125 H (65-110) mg/dL Lactic Acid 1.1 (0.7-2.0) mmol/L Calcium 9.4 (8.4-10.2) mg/dL Total Bilirubin 0.5 (0.2-1.3) mg/dL AST 30 (17-59) U/L ALT 23 (6-50) U/L Alkaline Phosphatase 65 (38-126) U/L Total Protein 7.1 (6.3-8.2) g/dL Albumin 4.1 (3.5-5.1) g/dL Urine Color Yellow (Yellow) Urine Appearance Clear (Clear) Urine pH 5.5 (5.0-9.0) Ur Specific [place] 1.019 (1.001-1.035) Urine Protein Negative (Negative) mg/dL Urine Glucose (UA) Negative (Negative) mg/dL Urine Ketones Negative (Negative) mg/dL Ur Blood (Man) Negative (Negative) Urine Nitrate Negative (Negative) Urine Bilirubin Negative (Negative) Urine Urobilinogen 0.2 (<2.0) mg/dL Leukocyte Esterase Rfl Negative (Negative) JAMI/UL Discharge Plan Discharge Clinical Impression: Hydrocele Patient Disposition: Home Condition: Stable Instructions: Hidrocele (ED) Additional Instructions: Please follow up with the urologist; you can always return for any further issues. Patient Language: Croatian Prescriptions: New oxycodone 5 mg capsule 5 mg PO Q8H PRN (Reason: pain) Qty: 7 0RF Follow-up/Referrals: Dilan,MD Man [Primary Care Provider] - Stand Alone Forms: Work/School Release IP
== END 2025-04-11 05:15 | disposition home or self-care (01) ==
PROVIDERS: Emergency Provider Emergency Medicine; PCP Internal Medicine
DX: N43.3 Hydrocele, unspecified (principal)
CPT/HCPCS: 36415; 72193; 80053; 81003; 83605; 85025; 96374; 99284; J2270; Q9967